=== PATIENT | female | born 1990 | race Two or more races ===

== ENCOUNTER → 2018-09-29 | Outpatient (CLI) | payer BC ==
--- NOTE | 2018-09-29 11:27 | RAD ---
Obstetric pelvic ultrasound 09/29/2018 INDICATION: viability. COMPARISON: None available TECHNIQUE: Sonographic evaluation of the pelvis was performed utilizing transabdominal and transvaginal imaging. Grayscale, color Doppler and spectral waveform analysis imaging were utilized. FINDINGS: The uterus measures 10.6 x 3.8 x 5.5 cm. Endometrium measures 18.6 mm. No suspicious uterine mass is identified. A gestational sac, yolk sac or pole are not visualized. There is no significant free fluid within the endometrium. Cervix appears closed. Right ovary measures 2.1 x 1.3 x 2.5 cm. Left ovary measures 3.5 x 1.2 x 2.3. No suspicious findings within the ovaries or adnexa. Arterial and venous waveform identified at the time of imaging. Urinary bladder is within normal limits given degree of distention. No free fluid is identified within the pelvis. IMPRESSION: No intrauterine gestation is identified at the time of imaging. Differential considerations would include early versus ectopic versus failure. Correlation with beta-hCG values. Short-term follow-up beta hCG and pelvic ultrasound may be of benefit. Electronically signed by: Abby Valdivia MD (09/29/2018 11:24 AM) [id number]
== END | disposition home or self-care (01) ==
LOC: US 10:09
PROVIDERS: ATTEND Obstetrics & Gynecology
DX: O09.90 Supervision of high risk pregnancy, unspecified, unspecified trimester (principal)
CPT/HCPCS: 76801; 76817